=== PATIENT | female | born 1965 | race Two or more races ===

== ENCOUNTER 2018-02-25 12:01 | Outpatient (CLI) | payer OTHER | END 2018-02-25 12:22 | disposition home or self-care (01) | LOC: RAD 501 12:01 | DX: M54.2 Cervicalgia (principal) ==

== ENCOUNTER 2021-06-30 10:22 | Inpatient (IN) | payer OTHER ==
[~2021-06-30] VITALS: Ht 160 cm; Wt 56.7 kg
[~2021-06-30 10:22] MED LIST: AMOX1TAB5 PO; SINGULAIR 5MG5 MG; SYMBICORT 16010.2 GM; SYNTHROID150 MCG
[2021-06-30] MEDS ORDERED: CYTOMEL25 MCG PO (10:37)
[2021-07-09] MEDS ORDERED: DULOXETINE HCL60 MG (15:52)
[2021-07-17] MEDS ORDERED: INTESTINEX680 M1 PO (08:03)
[2021-07-17] MEDS ORDERED: CIPROFLOXACIN500 MG PO (08:04)
[2021-07-17] MEDS ORDERED: METRONIDAZOLE500 MG PO (08:04)
== END 2021-07-17 12:07 | disposition home or self-care (01) | DRG 357 ==
LOC: ER 10:22 → SURH 23:42
PROVIDERS: ADMIT Surgery; ATTEND Surgery
PROC: BW25ZZZ Computerized Tomography (CT Scan) of Chest, Abdomen and Pelvis (ICD-10-PCS; 2021-06-30)
PROC: 4A033R1 Measurement of Arterial Saturation, Peripheral, Percutaneous Approach (ICD-10-PCS; 2021-06-30)
PROC: 3E0F7SF Introduction of Other Gas into Respiratory Tract, Via Natural or Artificial Opening (ICD-10-PCS; 2021-06-30)
PROC: BW2110Z Computerized Tomography (CT Scan) of Abdomen and Pelvis using Low Osmolar Contrast, Unenhanced and Enhanced (ICD-10-PCS; 2021-07-01)
PROC: 3E0F7GC Introduction of Other Therapeutic Substance into Respiratory Tract, Via Natural or Artificial Opening (ICD-10-PCS; 2021-07-01)
PROC: BW30ZZZ Magnetic Resonance Imaging (MRI) of Abdomen (ICD-10-PCS; 2021-07-01)
PROC: BW3GZZZ Magnetic Resonance Imaging (MRI) of Pelvic Region (ICD-10-PCS; 2021-07-01)
PROC: 0W9J00Z Drainage of Pelvic Cavity with Drainage Device, Open Approach (ICD-10-PCS; principal; 2021-07-02)
PROC: 02HV33Z Insertion of Infusion Device into Superior Vena Cava, Percutaneous Approach (ICD-10-PCS; 2021-07-02)
PROC: BW2110Z Computerized Tomography (CT Scan) of Abdomen and Pelvis using Low Osmolar Contrast, Unenhanced and Enhanced (ICD-10-PCS; 2021-07-09)
PROC: BW2110Z Computerized Tomography (CT Scan) of Abdomen and Pelvis using Low Osmolar Contrast, Unenhanced and Enhanced (ICD-10-PCS; 2021-07-16)
DX: K65.1 Peritoneal abscess (principal); K57.80 Diverticulitis of intestine, part unspecified, with perforation and abscess without bleeding; J98.11 Atelectasis; J90 Pleural effusion, not elsewhere classified; E03.8 Other specified hypothyroidism; D72.828 Other elevated white blood cell count; Z20.822 Contact with and (suspected) exposure to COVID-19; R09.02 Hypoxemia; B96.29 Other Escherichia coli [E. coli] as the cause of diseases classified elsewhere
CPT/HCPCS: 72198; 74185

== ENCOUNTER 2021-09-25 13:35 | Outpatient (CLI) | payer OTHER ==
[~2021-09-25 13:35] MED LIST changes: +CIPROFLOXACIN500 MG PO; +CYTOMEL25 MCG PO; +DULOXETINE HCL60 MG; +INTESTINEX680 M1 PO; +METRONIDAZOLE500 MG PO
== END 2021-09-25 13:56 | disposition home or self-care (01) ==
LOC: EKG 13:35
PROVIDERS: ATTEND Orthopaedic Surgery
DX: I10 Essential (primary) hypertension (principal)

== ENCOUNTER 2021-09-27 12:00 | Inpatient (IN) | payer OTHER ==
[~2021-09-27] VITALS: Ht 162.6 cm; Wt 53.1 kg
[2021-09-27] MEDS ORDERED: LEVOXYL112 MCG PO (13:42)
[2021-09-27] MEDS ORDERED: CYMBALTA60 MG PO (13:43)
[2021-10-03] MEDS ORDERED: PERCOCET 5-3251 EACH PO (13:08)
== END 2021-10-03 14:42 | disposition home or self-care (01) | DRG 329 ==
LOC: SURH 10-01 07:00 → SURG 10-01 08:50 → O/R 10-01 08:50 → SURH 10-01 12:00 → SURG 10-01 15:56
PROVIDERS: ADMIT Surgery; ATTEND Surgery
PROC: 0DBP4ZZ Excision of Rectum, Percutaneous Endoscopic Approach (ICD-10-PCS; 2021-10-01)
PROC: 0DN84ZZ Release Small Intestine, Percutaneous Endoscopic Approach (ICD-10-PCS; 2021-10-01)
PROC: 0DQ84ZZ Repair Small Intestine, Percutaneous Endoscopic Approach (ICD-10-PCS; 2021-10-01)
PROC: 0DJD8ZZ Inspection of Lower Intestinal Tract, Via Natural or Artificial Opening Endoscopic (ICD-10-PCS; 2021-10-01)
PROC: 3E0F7SF Introduction of Other Gas into Respiratory Tract, Via Natural or Artificial Opening (ICD-10-PCS; 2021-10-01)
PROC: 0DTN4ZZ Resection of Sigmoid Colon, Percutaneous Endoscopic Approach (ICD-10-PCS; principal; 2021-10-01 07:00)
DX: K57.20 Diverticulitis of large intestine with perforation and abscess without bleeding (principal); K65.8 Other peritonitis; N99.4 Postprocedural pelvic peritoneal adhesions; N73.6 Female pelvic peritoneal adhesions (postinfective); Z20.822 Contact with and (suspected) exposure to COVID-19

== ENCOUNTER 2022-05-08 07:43 | Outpatient (CLI) | payer OTHER ==
[~2022-05-08 07:43] MED LIST changes: +CYMBALTA60 MG PO; +LEVOXYL112 MCG PO; +PERCOCET 5-3251 EACH PO
== END 2022-05-08 07:55 | disposition home or self-care (01) ==
LOC: RX STUDY 07:43
PROVIDERS: ATTEND Internal Medicine Endocrinology, Diabetes & Metabolism
DX: K90.9 Intestinal malabsorption, unspecified (principal)

== ENCOUNTER 2023-05-26 14:14 | Outpatient (CLI) | payer OTHER | END 2023-05-26 14:23 | disposition home or self-care (01) | LOC: RAD 14:14 | DX: S63.641A Sprain of metacarpophalangeal joint of right thumb, initial encounter (principal); S60.221A Contusion of right hand, initial encounter ==

== ENCOUNTER 2023-06-24 10:13 | Outpatient (CLI) | payer OTHER | END 2023-06-24 10:23 | disposition home or self-care (01) | LOC: RAD 10:13 | PROVIDERS: ATTEND Physical Medicine & Rehabilitation Sports Medicine | DX: S63.635D Sprain of interphalangeal joint of left ring finger, subsequent encounter (principal) ==